=== PATIENT | male | born 1970 | race Caucasian/White ===

== ENCOUNTER 2019-07-05 13:28 | Emergency (ER) | payer OTHER ==
[2019-07-05 14:14] VITALS: BP 139/93
[2019-07-05] MEDS ORDERED: Cephalexin CAP* 500 MG PO ONE (14:42)
[2019-07-05] MEDS ORDERED: Tetan/Diph/Pertus SYR(Tdap)* 0.5 ML SYR(BOOSTRIX) use SYR contains LATEX IM ONE (14:44)
--- NOTE | 2019-07-05 14:44 | UC ---
Hand/Wrist HPI - HPI Summary HPI Summary: 48 yo male was doing yard work and inadvertently sustained a PW with a stick in the flexor crease of his right wrist suspects a retained FB initially unable to remember last Td but later recalled he had one earlier this year he is right handed - History Of Current Complaint Chief Complaint: UCForeignBody Stated Complaint: PUNCTURE WOUND Time Seen by Provider: 07/05/19 14:34 Hx Obtained From: Patient Onset/Duration: Sudden Onset Severity Initially: Moderate Severity Currently: Mild Pain Intensity: 0 Pain Scale Used: 0-10 Numeric Character Of Pain: Throbbing - when touched Aggravating Factor(s): Movement Alleviating Factor(s): Rest Associated Signs And Symptoms: Positive: Swelling Related History: Dominant Hand Right Hands: 1 - FB entry site 2 - STS - Allergies/Home Medications Allergies/Adverse Reactions: Allergies Allergy/AdvReac Type Severity Reaction Status Date / Time No Known Allergies Allergy Verified 07/05/19 14:08 PMH/Surg Hx/FS Hx/Imm Hx Previously Healthy: Yes - Surgical History Surgical History: None Surgery Procedure, Year, and Place: flexor tendon repair L hand - Family History Known Family History: Positive: Non-Contributory - Social History Alcohol Use: None Substance Use Type: None Smoking Status (MU): Smoker, Current Status Unknown Review of Systems All Other Systems Reviewed And Are Negative: Yes Constitutional: Positive: Negative Skin: Positive: Negative Eyes: Positive: Negative ENT: Positive: Negative Respiratory: Positive: Negative Cardiovascular: Positive: Negative Gastrointestinal: Positive: Negative Genitourinary: Positive: Negative Motor: Positive: Negative Neurovascular: Positive: Negative Musculoskeletal: Positive: Arthralgia - right wrist Neurological: Positive: Negative Psychological: Positive: Negative Physical Exam Triage Information Reviewed: Yes Appearance: Well-Appearing, No Pain Distress, Well-Nourished Vital Signs: Initial Vital Signs Temp 98.2 F 07/05/19 14:09 Pulse 57 07/05/19 14:09 Resp 16 07/05/19 14:09 BP 139/93 07/05/19 14:09 Pulse Ox 100 07/05/19 14:09 Vital Signs Reviewed: Yes Eyes: Positive: Conjunctiva Clear ENT: Positive: Hearing grossly normal. Negative: Nasal congestion, Nasal drainage, Trismus, Muffled voice, Hoarse voice, Uvula midline Neck: Positive: Supple, Nontender, No Lymphadenopathy Respiratory: Positive: Lungs clear, Normal breath sounds, No respiratory distress Cardiovascular: Positive: RRR, No Murmur Musculoskeletal: Positive: ROM Intact - but painful right wrist, Edema @ - see image Neurological: Positive: Alert Psychological Exam: Normal Skin Exam: Normal, Other - see image, no active bleeding, I am unable to visualize FB Diagnostics - Radiology No standard instances Radiology Interpretation Completed By: Radiologist Summary of Radiographic Findings: There is a shadowing echogenic foreign body in the volar aspect of the right wrist. measuring approximately 0.8 cm in length Hand/Wrist Course/Dx - Course Course Of Treatment: I informed patient that because of the depth of the FB and its location I felt this would be best done by a specialist I call Dr. Alejandro and spoke with him He said to have patient call office and they would take care of him - Differential Dx/Diagnosis Provider Diagnosis: Acute foreign body of right wrist Discharge - Sign-Out/Discharge Documenting (check all that apply): Patient Departure All imaging exams completed and their final reports reviewed: Yes - Discharge Plan Condition: Stable Disposition: HOME Prescriptions: Cephalexin CAP* [Keflex CAP*] 500 mg PO QID #28 cap Ibuprofen TAB* [Motrin TAB*] 600 mg PO QID PRN #40 tab PRN Reason: Pain Patient Education Materials: Soft Tissue Foreign Body (ED) Referrals: Fernando Clark MD [Medical Doctor] - As Soon As Possible Additional Instructions: splint elevate I spoke to Dr. Clark call office and make appt for tomorrow if you have trouble making the appt let us know you have a piece wood in your wrist - Billing Disposition and Condition Condition: STABLE Disposition: Home
== END 2019-07-05 16:04 | disposition home or self-care (01) ==
LOC: UCEAST 13:28
DX: S60.851A Superficial foreign body of right wrist, initial encounter (principal); W22.8XXA Striking against or struck by other objects, initial encounter; Y92.9 Unspecified place or not applicable; F17.210 Nicotine dependence, cigarettes, uncomplicated
CPT/HCPCS: 90715; 99203; A9270-GY; G0463